=== PATIENT | male | born 1980 | race African-American/Black ===

== ENCOUNTER 2019-12-30 08:04 | Emergency (ER) | payer OTHER ==
[~2019-12-30] VITALS: Ht 180.3 cm; Wt 79.4 kg
== END 2019-12-30 12:09 | disposition home or self-care (01) ==
LOC: ER 08:04
DX: B34.9 Viral infection, unspecified (principal); R05 Cough; R06.02 Shortness of breath; Z03.818 Encounter for observation for suspected exposure to other biological agents ruled out

== ENCOUNTER 2024-04-10 11:00 | Emergency (ER) | payer OTHER ==
[~2024-04-10] VITALS: Ht 180.3 cm; Wt 83.9 kg
[2024-04-10] MEDS ORDERED: IBUprofen 20 MG/ML BLIST.PACK (5ML) PO STA (13:03)
[2024-04-10 13:53] LABS: HEMATOCRIT 40.1 % (39.0-48.0); HEMOGLOBIN 13.4 g/dL (13-16.00); MEAN CELL VOLUME 81.6 fL (80.0-100.00); MEAN CORPUSCULAR HEMOGLOBIN 27.3 pg (27.00-32.0); MEAN CORPUSCULAR HGB CONC 33.5 g/dl (32.0-36.0); PLATELET COUNT 249 K/uL (150-450); RED BLOOD COUNT 4.91 M/uL (4.00-6.00); RED CELL DISTRIBUTION WIDTH 13.9 % (11.5-14.5)
== END 2024-04-10 15:04 | disposition home or self-care (01) ==
LOC: ER 11:02
PROVIDERS: General Practice
DX: J06.9 Acute upper respiratory infection, unspecified (principal); Z20.822 Contact with and (suspected) exposure to COVID-19; Z91.013 Allergy to seafood

== ENCOUNTER 2024-10-15 08:56 | Emergency (ER) | payer OTHER ==
[~2024-10-15] VITALS: Ht 180.3 cm; Wt 87.1 kg
[2024-10-15] MEDS ORDERED: DEXAMETHASONE SODIUM PHOSPHATE 4 MG/ML VIAL IM STA (09:21)
[2024-10-15] MEDS ORDERED: GUAIFENESIN/DEXTROMETHORPHAN 100MG/10ML BLIST.PACK PO STA (09:22)
[2024-10-15] MEDS ORDERED: ACETAMINOPHEN 500 MG GEL..CAP PO STA (09:23)
[2024-10-15] MEDS ORDERED: DEXAMETHASONE SODIUM PHOSPHATE 4 MG/ML VIAL ONE (09:39)
[2024-10-15] MEDS ORDERED: ACETAMINOPHEN 500 MG GEL..CAP PO ONE (09:39)
[2024-10-15] MEDS ORDERED: GUAIFENESIN 200 MG/10 ML BLIST.PACK PO ONE (09:40)
[2024-10-15 10:05] LABS: BASO % 0.5 % (0.1-1.2); EOS # 0.13 (0.04-0.54); EOS % 3.3 % (0.7-7.0); HEMATOCRIT 41.7 % (40.1-51.0); HEMOGLOBIN 13.7 g/dL (13.7-17.5); LYMPH # 0.84 (1.18-3.74); LYMPH % 21.3 % (19.3-53.1); MEAN CORPUSCULAR HEMOGLOBIN 27.1 pg (25.6-32.2); MONO # 0.88 (0.24-0.82); NEUT # 2.06 (1.56-6.13); NEUT % 52.3 % (34.0-71.1); PLATELET COUNT 274 K/uL (163-369); RED BLOOD COUNT 5.05 M/uL (4.63-6.08); RED CELL DISTRIBUTION WIDTH 13.2 % (11.6-14.4)
[2024-10-15 10:27] LABS: COVID-19 AG NEGATIVE (NEGATIVE)
[2024-10-15 10:31] LABS: INFLUENZA A AG NEGATIVE (NEGATIVE); INFLUENZA B AG NEGATIVE (NEGATIVE)
[2024-10-15 11:31] LABS: MONO % 22.3 % (4.7-12.5)
[2024-10-15] MEDS ORDERED: ZITHROMAX500 MG PO (11:40)
[2024-10-15] MEDS ORDERED: MUCINEX DM ER1 EAC1 PO (11:40)
[2024-10-15] MEDS ORDERED: MEDROLPACK PO (11:40)
[2024-10-15] MEDS ORDERED: ACETAMINOPHEN500 M2 PO (11:40)
== END 2024-10-15 12:07 | disposition home or self-care (01) ==
LOC: ER 09:01
PROVIDERS: General Practice
DX: J06.9 Acute upper respiratory infection, unspecified (principal); Z20.822 Contact with and (suspected) exposure to COVID-19; Z91.013 Allergy to seafood